=== PATIENT | female | born 1970 | race Caucasian/White ===

== ENCOUNTER 2022-11-26 07:02 | Day surgery (SDC) | payer OTHER ==
[~2022-11-26] VITALS: Ht 154.9 cm; Wt 65.8 kg
[2022-11-26] MEDS ORDERED: diphenhydrAMINE 50 MG/ML VIAL ONE (08:07)
[2022-11-26] MEDS ORDERED: MIDAZOLAM 2 MG/2 ML VIAL ONE ×2 (08:07→08:09)
[2022-11-26] MEDS ORDERED: fentaNYL citrate 0.05 MG/ML VIAL ONE (08:07)
[2022-11-26] MEDS ORDERED: LIDOCAINE 2% 100 MG/5 ML UJET TP ONE (08:08)
[2022-11-26] MEDS ORDERED: MIDAZOLAM 2 MG/2 ML VIAL IVP ONE (13:00)
[2022-11-26] MEDS ORDERED: fentaNYL citrate 0.05 MG/ML VIAL IVP ONE (13:00)
== END 2022-11-26 09:32 | disposition home or self-care (01) ==
LOC: MMU 07:02 → MOR 07:02
PROVIDERS: ATTEND Internal Medicine Gastroenterology
DX: Z12.11 Encounter for screening for malignant neoplasm of colon (principal); K63.5 Polyp of colon
CPT/HCPCS: 45385; J2250; J3010; J1200